=== PATIENT | male | born 1965 | race African-American/Black ===

== ENCOUNTER 2019-02-05 18:01 | Emergency (ER) | payer BC ==
[~2019-02-05] VITALS: Ht 167.6 cm; Wt 70.0 kg
[~2019-02-05 18:01] MED LIST: ANUCORT-HC25 MG RE; ANUSOL-HC2.5 % EX; CEPHALEXIN500 MG OR; LORTAB5 PO; NO; NO CURRENT MEDS
[2019-02-05 18:29] LABS: HEMATOCRIT 45.7 % (39.0-50.0); HEMOGLOBIN 14.6 g/dl (14.0-18.0); IMMATURE GRANULOCYTES 0.3 % (0.0-5.0); MEAN CELL VOLUME 83.5 fL CALC (80.0-100.0); MEAN CORPUSCULAR HGB 26.7 pG CALC (26.0-32.0); MEAN CORPUSCULAR HGB CONC 31.9 g/L CALC (32.0-36.0); NEUT# 5.58 thou/uL (1.82-7.42); RED BLOOD COUNT 5.47 mill/uL (4.70-6.10); RED CELL DISTRI WIDTH 14.3 % (11.5-15.5)
[2019-02-05 18:31] LABS: URINE BILIRUBIN - DIPSTICK NEGATIVE (NEGATIVE); URINE BLOOD DIPSTICK TRACE-LYSED (NEGATIVE); URINE COLOR YELLOW; URINE GLUCOSE - DIPSTICK NEGATIVE (NEGATIVE); URINE KETONE NEGATIVE (NEGATIVE); URINE LEUK ESTERASE NEGATIVE (NEGATIVE); URINE NITRITE - DIPSTICK NEGATIVE (Negative); URINE PROTEIN - DIPSTICK NEGATIVE (NEG-TRACE); URINE SPECIFIC GRAVITY <=1.005; URINE UROBILINOGEN - DIPSTICK 0.2 E.U./dL (0.2)
[2019-02-05 18:32] LABS: BARBITURATES NEGATIVE (NEGATIVE); COCAINE NEGATIVE (NEGATIVE); METHADONE NEGATIVE (NEGATIVE); OXCYCODONE NEGATIVE (NEGATIVE); TETRAHYDROCANNABIONOL NEGATIVE (NEGATIVE); TRICYLIC ANTIDEPRESSANTS NEGATIVE (NEGATIVE)
[2019-02-05 19:03] LABS: ALBUMIN 5.1 g/dL (3.2-5.0); ALKALINE PHOSPHATASE 56 u/l (38-126); AMYLASE 77 u/l (30-110); ANION GAP 20 (6-22 (CALC)); BILIRUBIN, TOTAL 0.3 mg/dL (0.0-1.4); BUN 13 mg/dL (9-20); BUN/CREATININE RATIO 16 (12-20 (CALC)); CARBON DIOXIDE 25 mmol/l (22-30); CHLORIDE 101 mmol/l (95-108); CREATININE 0.8 mg/dL (0.7-1.3); GFR > 60 ML/MIN (>=60 (CALC)); GFR FOR AFR.AMER. > 60 ML/MIN (>=60 (CALC)); LIPASE 239 u/l (23-300); POTASSIUM 4.7 mmol/l (3.5-5.1); SGOT/AST 53 u/l (17-59); SODIUM 141 mmol/l (137-146)
[2019-02-05 19:11] LABS: ETHYL ALCOHOL 340 mg/dl (0-30)
[2019-02-05 19:31] VITALS: BP 128/85
== END 2019-02-05 19:30 | disposition left against medical advice (07) | DRG 313 ==
LOC: ED 18:01
DX: R07.9 Chest pain, unspecified (principal); F10.129 Alcohol abuse with intoxication, unspecified; F17.200 Nicotine dependence, unspecified, uncomplicated; Z91.19 Patient's noncompliance with other medical treatment and regimen